=== PATIENT | male | born 2000 | race Caucasian/White ===

== ENCOUNTER 2023-06-21 13:13 | Emergency (ER) | payer OTHER, SELFPAY ==
[2023-06-21 13:20] VITALS: BP 141/98; PULSE 87; RESP 18; TEMP 36.6; O2SAT 98
--- NOTE | 2023-06-21 14:25 | ED.GENADULT ---
HPI - General Adult General Chief complaint: Animal Bite Stated complaint: dog bite Time Seen by Provider: 06/21/23 14:00 Source: patient Mode of arrival: ambulatory Limitations: no limitations History of Present Illness HPI narrative: This is a 22-year-old male who presents to the ED with chief complaint of a dog bite injury to the left lower leg. 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 He actually states that the bite was more of an abrasion. He does not feel that the wound is very deep. He was just told to go to the ER. Denies any any further complaints. The dog is well-known to those owners. No concern for rabies. States his tetanus is up-to-date. Related Data Allergies Allergy/AdvReac Type Severity Reaction Status Date / Time No Known Allergies Allergy Verified 06/21/23 13:59 Review of Systems Review of Systems: All systems as dictated in HPI Exam Narrative: GENERAL: Well-appearing, well-nourished, and in no acute distress. HEAD: Normocephalic, atraumatic. EYES: PERRLA and EOMI. ENT: Nares clear, no rhinorrhea or epistaxis. Mucous membranes moist. Oropharynx without tonsillar hypertrophy exudate or other lesions. NECK: Supple. No adenopathy or masses. CHEST: No respiratory distress. Clear to auscultation. No wheezes rales or rhonchi HEART: Regular rate and rhythm. No murmur heard. Normal peripheral pulses. ABDOMEN: Soft, nontender, nondistended, normal active bowel sounds. MSK: Normal range of motion. No edema. SKIN: Small 0.5 cm abrasion to the left lateral calf. No active bleeding. No depth to the wound. NEURO: Alert and oriented x3. No focal deficits. PSYCH: Normal mood and affect. Course Vital Signs Vital signs: Vital Signs Temperature 97.9 F 06/21/23 13:20 Pulse Rate 87 06/21/23 13:20 Respiratory Rate 18 06/21/23 13:20 Blood Pressure 141/98 H 06/21/23 13:20 Pulse Oximetry 98 06/21/23 13:20 Oxygen Delivery Room Air 06/21/23 13:20 Temperature 97.9 F 06/21/23 13:20 Pulse Rate 87 06/21/23 13:20 Respiratory Rate 18 06/21/23 13:20 Blood Pressure 141/98 H 06/21/23 13:20 Pulse Oximetry 98 06/21/23 13:20 Oxygen Delivery Room Air 06/21/23 13:20 Medical Decision Making MDM Narrative Medical decision making narrative: This is a 22-year-old male who presents to the ED with chief complaint of a dog bite injury. Vitals are normal. Exam reveals a small abrasion to the left lower leg. No active bleeding. Neurovascular intact distally. Do not feel any imaging is warranted with this. The wound was well cleaned here in the ED. He will be given short course of Augmentin. Tetanus up-to-date. No concern for rabies with this dog. Pt will be discharged in stable condition. Return precautions given and supportive measures discussed. Pt is understanding and agreeable with plan for discharge and follow-up with PCP. Vital Signs Vital Signs: Vital Signs Temperature 97.9 F 06/21/23 13:20 Pulse Rate 87 06/21/23 13:20 Respiratory Rate 18 06/21/23 13:20 Blood Pressure 141/98 H 06/21/23 13:20 Pulse Oximetry 98 06/21/23 13:20 Oxygen Delivery Room Air 06/21/23 13:20 Temperature 97.9 F 06/21/23 13:20 Pulse Rate 87 06/21/23 13:20 Respiratory Rate 18 06/21/23 13:20 Blood Pressure 141/98 H 06/21/23 13:20 Pulse Oximetry 98 06/21/23 13:20 Oxygen Delivery Room Air 06/21/23 13:20 Discharge Plan Discharge Clinical Impression: Dog bite Patient Disposition: Home, Self-Care Condition: Stable Instructions: Antibiotic Form, Animal Bite (ED) Additional Instructions: Exam is very reassuring today. Please watch the area for any signs of infection as discussed. Take Augmentin for 5 days. Prescriptions: New amoxicillin-pot clavulanate 875-125 mg tablet 1 tablet PO Q12H Qty: 10 0RF Follow-up/Referrals: PHYSICIAN NOT ON STAFF*
--- NOTE | 2023-06-21 14:38 | PC.NURSE ---
Pt refused tetanus shot, said that his Tetanus shot is up to date less than 5 years.
== END 2023-06-21 14:50 | disposition home or self-care (01) ==
LOC: ANHED 14:44
PROVIDERS: Emergency Provider Physician Assistant
DX: S81.852A Open bite, left lower leg, initial encounter (principal); Z23 Encounter for immunization; W54.0XXA Bitten by dog, initial encounter
CPT/HCPCS: 90471; 99283

== ENCOUNTER 2024-12-23 09:09 | Emergency (ER) | payer BC, SELFPAY ==
--- OUTSIDE RECORDS SUMMARY | 2024-12-23 09:11 | XMS_ITS | Clinical Summary ---
Author Organization [facility] Address [address] [place] [address] Care Team Providers Care Manager Practice Name Role Phone Margret Betancur DO Primary Care Provider [phone] Allergies No known active allergies Medications albuterol sulfate HFA (PROAIR HFA) 108 (90 Base) MCG/ACT inhalerIndicati ons:NICHOLS (dyspnea on exertion) Take 2 puffs 30 min prior to activity or every 6 hours as needed. 18 g 3 10/27/2021 Active BUPROPION XL 150 MG 24 hr tabletIndicatio ns:Mild episode of recurrent major depressive disorder (CMS/HCC) TAKE 2 TABLETS BY MOUTH DAILY. 60 tablet 3 02/05/2022 Active Active Problems No known active problems Immunizations Name Administration Dates Next Due Dtap 2005, 2,02/09/2001,2000,2000 Fluzone 6 Months+ Quad (0.5 mL Prefilled Syringe) 10/24/2021 HPV GARDASIL 9-VALENT 07/28/2016 HPV4 (Gardasil) 04/17/2014 Hepatitis A (Generic) 2005,03/26/2004 Hepatitis B Pediatric 07/13/2001,2000,06/09 Hib 01/02/2002,07/13/2001,2000 Hib (PedvaxHIB)3 Dose 2000 Influenza Adult (Generic) 08/06/2017,07/28/2016 MMR 2005,10/03/2001 Menactra 07/28/2016,04/17/2014 Meningcoccal Group B (Bexser o)(aka Meningitis) 08/06/2017,07/28/2016 Pneumococcal (Prevnar 7) 10/03/2001,07/13/2001 Polio IPV (Ipol) 2005, 1,2000,1999 Tdap (Adacel) 10/24/2021,04/09/2011 Varicella Vaccine 04/09/2011,07/13/2001 Family History Medical History Relation Comments Heart Disease Father Hypertension Father Breast Cancer Maternal Aunt Diabetes Paternal Grandmother Heart Disease Paternal Grandmother Relation Status Comments Father Maternal Aunt Paternal Grandmother Social History Tobacco Use Types Packs/Day Years Used Date Smoking Tobacco: Never Smokeless Tobacco: Never Tobacco Cessation:Counseling Given: No Alcohol Use Standard Drinks/Week Comments Yes 0 (1 standard drink = 0.6 oz pur e alcohol) PHQ-2 Answer Date Recorded PHQ-2 Score - If the patient scores above 3, please move on to questions 3-9 2 11/24/2021 Sex and Gender Information Value Date Recorded Sex Assigned at Not on file Legal Sex Male 12:19 AM CDT Gender Identity Not on file Sexual Orientation Not on file Last Filed Vital Signs Vital Sign Reading Time Taken Comments Blood Pressure 136/84 11/24/2021 3:50 PM FORENSIC IDENTIFICATION SPECIALIST Pulse 80 11/24/2021 3:50 PM FORENSIC IDENTIFICATION SPECIALIST Temperature 37.6 C (99.7 F) 11/24/2021 3:50 PM FORENSIC IDENTIFICATION SPECIALIST Respiratory Rate 17 11/24/2021 3:50 PM FORENSIC IDENTIFICATION SPECIALIST Oxygen Saturation 98% 11/24/2021 3:50 PM FORENSIC IDENTIFICATION SPECIALIST Inhaled Oxygen Concentration - - Weight 137.3 kg (302 lb 9.6 oz) 11/24/2021 3:50 PM FORENSIC IDENTIFICATION SPECIALIST Height 170.2 cm (5' 7 ) 10/24/2021 7:10 AM FORENSIC IDENTIFICATION SPECIALIST Body Mass Index 47.39 10/24/2021 7:10 AM FORENSIC IDENTIFICATION SPECIALIST Plan of Treatment Health Maintenance Due Date Last Done Comments Annual Physical 10/24/2022 10/24/2021 COVID-19 Vaccine ( season) 2024 Influenza Adult (#1) 2024 10/24/2021, 08/06/2017, 07/28/2016 DTaP, Tdap and Td Vaccines (8 - Td or Tdap) 10/24/2031 10/24/2021, 04/09/2011, 2005, Additional history exists Hepatitis B Vaccines Completed 07/13/2001, 2000, 2000 Pneumococcal Vaccine: Pediatrics (0 to 5 Years) and At-Risk Patients (6 to 64 Years) Aged Out 10/03/2001, 07/13/2001 No longer eligibl e based on patient's age to complete this topic HPV Vaccines Completed 07/28/2016, 04/17/2014 Meningococcal Vaccine Completed 07/28/2016, 014 Meningococcal B Vaccine Completed 08/06/2017, 07/28 Hepatitis C Completed 10/24/2021 RSV Immunizations Under 20 Months Aged Out No longer eligible based on patient's age to complete this topic Procedures Procedure Name Priority Date/Time Associated Diagnosis Comments HEPATITIS C ANTIBODY Routine 10/24/2021 8:17 AM FORENSIC IDENTIFICATION SPECIALIST Need for hepatitis C screening test from Last 3 Months or Most Recently Relevant to Health Maintenance Results * HEPATITIS C ANTIBODY (10/24/2021 8:17 AM FORENSIC IDENTIFICATION SPECIALIST) HEPATITIS C AB NON-REACTI VE NON-REACT GILLIAN 10/24/2021 10:42 PM FORENSIC IDENTIFICATION SPECIALIST [facility] Comment: ANTIBODIES TO HCV NOT DETECTED. DOES NOT EXCLUDE THE POSSIBILITY OF EXPOSURE TO HCV. 10/24/2021 8:17 AM FORENSIC IDENTIFICATION SPECIALIST Margret Betancur DO LABORATORY Final Result [facility] [address] [place] [address], [id number] from Last 3 Months or Most Recently Relevant to Health Maintenance Insurance [facility] Care Teams Manager Practice Relationship Specialty Start Date End Date Margret Betancur DO [address] [place] [address] PCP - General FAMILY PRACTICE 10/23/21
--- OUTSIDE RECORDS SUMMARY | 2024-12-23 09:11 | XMS_ITS | Encounter Summary ---
Author Organization [facility] Address [address] [place] [address] Care Team Providers Care Safety Pin Assembling Machine Operator Name Role Phone Margret Betancur DO Primary Care Provider [phone] Encounter Details Date Type Department Care Team (Late st Contact Info) Description 02/17/2022 MyChart Message Enc [facility] Family Medicine - [place] [address] [facility] [address] [place] [phone] Margret Betancur DO [address] [place], [place] [id number] Medication Social History Tobacco Use Types Packs/Day Years Used Date Smoking Tobacco: Never Smokeless Tobacco: Never Alcohol Use Standard Drinks/Week Comments Yes 0 [...] on file Sexual Orientation Not on file documented as of this encounter Progress Notes * Minh Owens MD - 02/18/2022 7:37 AM CDT Reduce to 1 tablet daily for 1-2 weeks and then off as tolerated documented in this encounter Plan of Treatment Not on file documented as of this encounter Visit Diagnoses Not on filedocumented in this encounter Additional Health Concerns Assessment Noted Time PHQ-9 Depression Total Score: 12 022 4:36 PM MASTER OF CEREMONIES documented as of this encounter Care Teams Safety Pin Assembling Machine Operator Relationship Specialty Start Date End Date Margret Betancur DO [address] [place] [address] PCP - General FAMILY PRACTICE 10/23/21 documented as of this encounter
[2024-12-23 09:16] VITALS: BP 148/87; PULSE 92; RESP 18; TEMP 36.6; O2SAT 100
--- NOTE | 2024-12-23 09:30 | ED.DENTAL ---
HPI - Dental/Oral General Chief complaint: Dental/Oral Stated complaint: facial swelling, has broken tooth Time Seen by Provider: 12/23/24 09:13 History of Present Illness HPI Narrative: Patient is a 24-year-old male who presents with left-sided dental pain. Look it tooth 12. Worsening over the last couple of days but fractured the tooth 2 weeks ago. Mild facial swelling. No difficulty breathing or swallowing. Working to get into a dentist for extraction. Related Data Allergies Allergy/AdvReac Type Severity Reaction Status Date / Time No Known Allergies Allergy Verified 12/23/24 09:24 Review of Systems Constitutional: Constitutional: Reports no additional constitutional complaints ENT: Reports system reviewed and no additional complaints, except as documented PMFSH Past Medical History Medical History (Updated 12/23/24 @ 09:32 by Sharif Rosen MD) Healthy adult male Exam Narrative: GENERAL: Well-appearing, well-nourished, and in no acute distress. HEAD: Normocephalic, atraumatic. ENT: Mucous membranes moist. Fractured tooth 12 with tenderness and fullness at the apex rolled consistent early dental abscess. HEART: Regular rate and rhythm. Normal peripheral pulses. EXTREMITIES: Normal range of motion. No edema. NEURO: Alert and oriented x3. PSYCH: Normal mood and affect. Course Course Emergency Course: D/c home with abx and pain control. Vital Signs Vital signs: Vital Signs Temperature 97.9 F 12/23/24 09:16 Pulse Rate 92 12/23/24 09:16 Respiratory Rate 18 12/23/24 09:16 Blood Pressure 148/87 H 12/23/24 09:16 Pulse Oximetry 100 12/23/24 09:16 Temperature 97.9 F 12/23/24 09:16 Pulse Rate 92 12/23/24 09:16 Respiratory Rate 18 12/23/24 09:16 Blood Pressure 148/87 H 12/23/24 09:16 Pulse Oximetry 100 12/23/24 09:16 Discharge Plan Discharge Clinical Impression: Dental abscess Patient Disposition: Home, Self-Care Condition: Stable Instructions: Antibiotic Form, Dental Abscess (ED) Additional Instructions: Return to the ER if you cannot breathe, you cannot swallow, or you have additional concerns. Patient Language: Amharic Prescriptions: New hydrocodone-acetaminophen 5-325 mg tablet 1 tablet PO Q6H PRN (Reason: pain) Qty: 10 0RF amoxicillin-pot clavulanate 875-125 mg tablet 1 tablet PO Q12H Qty: 20 0RF No Action amoxicillin-pot clavulanate 875-125 mg tablet 1 tablet PO Q12H Qty: 10 0RF Follow-up/Referrals: Dental Referral Line [Outside] - 1 Week PHYSICIAN NOT ON STAFF,NONSTAFF [Non-Staff] - 1 Week
--- OUTSIDE RECORDS SUMMARY | 2024-12-23 09:36 | XMS_ITS | Encounter Summary ---
Author Organization [facility] Address [address] [place] [address] Care Team Providers Care Dairy Husbandry Worker Name Role Phone Margret Betancur DO Primary Care Provider [phone] Encounter Details Date Type Department Care Team (Late st Contact Info) Description 02/17/2022 MyChart Message Enc [facility] Family Medicine - [place] [address] [place] [phone] Margret Betancur DO [address] [place], [place] [phone] Medication Social History Tobacco Use Types Packs/Day [...] Depression Total Score: 12 022 4:36 PM PUTTY REMOVER documented as of this encounter Care Teams Dairy Husbandry Worker Relationship Specialty Start Date End Date Margret Betancur DO [address] [place] [address] PCP - General FAMILY PRACTICE 10/23/21 documented as of this encounter
--- OUTSIDE RECORDS SUMMARY | 2024-12-23 09:36 | XMS_ITS | Clinical Summary ---
Author Organization [facility] Address [address] [place] [address] Care Team Providers Care Chain Builder Loom Control Name Role Phone Margret Betancur DO Primary Care Provider [phone] Allergies No known active allergies Medications albuterol [...] Comments Blood Pressure 136/84 11/24/2021 3:50 PM TELEPHONE CLERKS SUPERVISOR Pulse 80 11/24/2021 3:50 PM TELEPHONE CLERKS SUPERVISOR Temperature 37.6 C (99.7 F) 11/24/2021 3:50 PM TELEPHONE CLERKS SUPERVISOR Respiratory Rate 17 11/24/2021 3:50 PM TELEPHONE CLERKS SUPERVISOR Oxygen Saturation 98% 11/24/2021 3:50 PM TELEPHONE CLERKS SUPERVISOR Inhaled Oxygen Concentration - - Weight 137.3 kg (302 lb 9.6 oz) 11/24/2021 3:50 PM TELEPHONE CLERKS SUPERVISOR Height 170.2 cm (5' 7 ) 10/24/2021 7:10 AM TELEPHONE CLERKS SUPERVISOR Body Mass Index 47.39 10/24/2021 7:10 AM TELEPHONE CLERKS SUPERVISOR Plan of Treatment Health Maintenance Due Date [...] HEPATITIS C ANTIBODY Routine 10/24/2021 8:17 AM TELEPHONE CLERKS SUPERVISOR Need for hepatitis C screening test from Last 3 Months or Most Recently Relevant to Health Maintenance Results * HEPATITIS C ANTIBODY (10/24/2021 8:17 AM TELEPHONE CLERKS SUPERVISOR) HEPATITIS C AB NON-REACTI VE NON-REACT GILLIAN 10/24/2021 10:42 PM TELEPHONE CLERKS SUPERVISOR [facility] Comment: ANTIBODIES TO HCV NOT DETECTED. DOES NOT EXCLUDE THE POSSIBILITY OF EXPOSURE TO HCV. 10/24/2021 8:17 AM TELEPHONE CLERKS SUPERVISOR Margret Betancur DO LABORATORY Final Result [facility] [address] [place] [address], [id number] from Last 3 Months or Most Recently Relevant to Health Maintenance Insurance [facility] Care Teams Chain Builder Loom Control Relationship Specialty Start Date End Date Margret Betancur DO [address] [place] [address] PCP - General FAMILY PRACTICE 10/23/21
== END 2024-12-23 09:50 | disposition home or self-care (01) ==
PROVIDERS: Emergency Provider Emergency Medicine
DX: K04.7 Periapical abscess without sinus (principal)
CPT/HCPCS: 99283